=== PATIENT | male | born 1995 | race Caucasian/White ===

== ENCOUNTER 2019-06-22 14:21 | Emergency (ER) | payer OTHER ==
[~2019-06-22] VITALS: Ht 177.8 cm; Wt 81.6 kg
--- NOTE | 2019-06-22 14:25 | NUR ---
INSTRUCTED TO WAIT IN LOBBY
[2019-06-22 14:27] VITALS: BP 106/49
--- NOTE | 2019-06-22 15:00 | NUR ---
24 Y/O MALE PRESENTS TO ER WITH C/O ANXIETY ATTACK X 1.5HRS AGO. PT STATES WHILE DRIVING TO WORK, HE STARTED TO EXPERIENCE PALPITATIONS, SOB, CLAMMY SKIN, TIGHTNESS IN CHEST, AND FEELING FAINT. STATES HE HAD ANOTHER OCCURENCE LIKE THIS 2 YRS AGO. DENIES HEADACHE, N/V/D, PAIN. DENIES ILLICIT DRUG USAGE, STATES LAST ALCOHOL CONSUMPTION WAS 06/20/19 " I DON'T KNOW HOW MUCH, BUT IT WAS A LOT, I WAS DRUNK". "[facility] DOCTOR TOLD ME THAT MY DRINKING MAY BE THE REASON I KEEP HAVING ATTACKS, AND I NEED TO LAY OFF THE ALCOHOL, AND TAKE OTC MAGNESIUM." RESTING QUIETLY IN BED, SIDERAIL X1, WILL CONTINUE TO MONITOR. DENIES PMH ALLERGIES: AMOXICILLIN
--- NOTE | 2019-06-22 15:52 | NUR ---
Patient discharged with v/s stable. Written and verbal after care instructions given and explained. Patient alert, oriented and verbalized understanding of instructions. Ambulatory with steady gait. All questions addressed prior to discharge. ID band removed. Patient advised to follow up with PMD. Rx of HYDROXYZINE HCL given. Patient educated on indication of medication including possible reaction and side effects. Opportunity to ask questions provided and answered.
[2019-06-22 15:53] VITALS: BP 106/49
== END 2019-06-22 15:52 | disposition home or self-care (01) ==
LOC: MED 14:21
DX: F41.0 Panic disorder [episodic paroxysmal anxiety] (principal); R42 Dizziness and giddiness
CPT/HCPCS: 99283